=== PATIENT | male | born 1950 | race Caucasian/White ===

== ENCOUNTER 2022-06-09 11:58 | Emergency (ER) | payer MEDICARE, BC, SELFPAY ==
[2022-06-09 12:44] VITALS: BP 105/65; PULSE 63; RESP 14; TEMP 36.7; O2SAT 99; BMI 21.4
[2022-06-09] MEDS: cephALEXin 500 MG CAPSULE PO (13:20)
[2022-06-09] MEDS: predniSONE 10 MG TABLET 50 MG PO (13:23)
[2022-06-09 13:27] VITALS: BP 104/68; PULSE 60; O2SAT 98
--- NOTE | 2022-06-10 16:52 | ED.GENADULT ---
HPI - General Adult General Chief complaint: Skin/Abscess/Foreign Body Stated complaint: Bee sting left arm swelling Time Seen by Provider: 06/09/22 12:44 Source: patient Mode of arrival: ambulatory Limitations: no limitations History of Present Illness HPI narrative: The patient presented with a insect bite to his left dorsum of his hand, it has been swollen and red. This happened earlier today. He does have EpiPen at home. No shortness of breath, no wheezing, no skin or throat tightening, no tongue swelling. He has stiles Related Data Home Medications Medication Instructions Recorded Confirmed chlorthalidone 25 mg tablet mg 06/09/22 epinephrine 0.3 mg/0.3 mL 06/09/22 injection, auto-injector potassium chloride 20 mEq meq PO 06/09/22 tablet,extended release(part/cryst) venlafaxine 150 mg mg PO 06/09/22 capsule,extended release 24 hr venlafaxine 37.5 mg mg PO 06/09/22 capsule,extended release 24 hr Previous Rx's Medication Instructions Recorded cephalexin 500 mg capsule 500 mg PO QID #20 caps 06/09/22 prednisone 20 mg tablet 20 mg PO BID #6 tabs 06/09/22 Allergies Allergy/AdvReac Type Severity Reaction Status Date / Time Sulfa (Sulfonamide Allergy Verified 06/09/22 12:44 Antibiotics) Review of Systems Status of ROS: Reports: 6 or more systems reviewed and unremarkable except as noted in History and below PFSH PFS Social History Smoking Status: Never smoker Do you use any of these nicotine containing products: None Second hand tobacco smoke exposure: No How often do you have a drink containing alcohol: 4 or more times a week How many standard drinks containing alcohol do you have on a typical day: 1 or 2 How often do you have six or more drinks on one occasion: Never AUDIT-C Alcohol total score: 4 Non-prescribed substance use: denies use Exam Narrative: Exam Narrative: objective: Red and swollen hand in mid forearm to distal forearm, range of motion is normal in the hand, no stinger noted in the hand, mild warmth to the swelling of the dorsum of the Course Vital Signs Vital signs: Initial Vital Signs Temperature 98.0 F 06/09/22 12:44 Temperature Source Temporal Artery Scan 06/09/22 12:44 Pulse Rate 63 06/09/22 12:44 Respiratory Rate 14 06/09/22 12:44 Blood Pressure 105/65 06/09/22 12:44 Blood Pressure Mean 78 06/09/22 12:44 Blood Pressure Position Sitting 06/09/22 12:44 Pulse Oximetry 99 06/09/22 12:44 Oxygen Delivery Method 06/09/22 12:44 Vital Signs Temperature 98.0 F 06/09/22 12:44 Pulse Rate 63 06/09/22 12:44 Respiratory Rate 14 06/09/22 12:44 Blood Pressure 105/65 06/09/22 12:44 Pulse Oximetry 99 06/09/22 12:44 Oxygen Delivery Method 06/09/22 12:44 Temperature 98.0 F 06/09/22 12:44 Pulse Rate 60 06/09/22 13:27 Respiratory Rate 14 06/09/22 12:44 Blood Pressure 104/68 06/09/22 13:27 Pulse Oximetry 98 06/09/22 13:27 Oxygen Delivery Method 06/09/22 13:27 Medical Decision Making MDM Narrative Medical decision making narrative: the patient appears to have an allergic reaction versus mild cellulitis or in addition to mild cellulitis. The patient will at this point I would recommend he try Benadryl as well as prednisone and will start an antibiotic. Discharge Plan Discharge Clinical Impression: Allergic reaction to insect bite, Cellulitis Patient Disposition: Home, Self-Care Condition: Stable Additional Instructions: Light activity elevation, ice to the arm and hand on the left, Benadryl 25 mg t.i.d. over the next 3-5 days prednisone 20 mg b.i.d. x3 days start tomorrow, epi pens at home if needed, or call ambulance of shortness of breath tongue swelling difficulty swallowing. Activity Level: Light activity Discharge Diet: Regular Prescriptions: New cephalexin 500 mg capsule 500 mg PO QID Qty: 20 0RF prednisone 20 mg tablet 20 mg PO BID Qty: 6 0RF No Action venlafaxine 37.5 mg capsule,extended release 24hr PO Label Comments: TAKE 2 (75 MG) CAPSULES BY MOUTH DAILY FOR 2 MONTHS THEN 1 CAPSULE(37.5MG) DAILY FOR 2 MONTHS THEN STOP venlafaxine 150 mg capsule,extended release 24hr PO Label Comments: TAKE ONE CAPSULE BY MOUTH EVERY DAY chlorthalidone 25 mg tablet Label Comments: TAKE ONE TABLET BY MOUTH EVERY DAY potassium chloride 20 mEq tablet,ER particles/crystals PO Label Comments: TAKE 3 TABLETS BY MOUTH EVERY DAY epinephrine 0.3 mg/0.3 mL auto-injector Label Comments: INJECT 0.3 MG (1 PEN) INTRAMUSCULAR EACH TIME IF NEEDED FOR ALLERGIC REACTION. Follow Up/Referrals: Annel Moreno MD [Staff Physician] - Stand Alone Forms: [employer] Info Instructions
== END 2022-06-09 13:34 | disposition home or self-care (01) ==
PROVIDERS: Emergency Provider Family Medicine; PCP Surgery
DX: S60.562A Insect bite (nonvenomous) of left hand, initial encounter (principal); W57.XXXA Bitten or stung by nonvenomous insect and other nonvenomous arthropods, initial encounter; Y93.9 Activity, unspecified
CPT/HCPCS: 99283; A9270; J7512